=== PATIENT | male | born 1985 | race Caucasian/White ===

== ENCOUNTER 2020-06-10 17:16 | Emergency (ER) | payer SELFPAY ==
[~2020-06-10] VITALS: Ht 188 cm; Wt 177.7 kg
[2020-06-10] MEDS ORDERED: DOXYCYCLINE 10100 MG PO (17:57)
[2020-06-10] MEDS ORDERED: CEPHALEXIN500 M1 PO (17:57)
[2020-06-10 18:05] VITALS: BP 158/76; PULSE 86; TEMP 98.7
== END 2020-06-10 18:11 | disposition home or self-care (01) ==
LOC: COL.ER 17:16
DX: M79.674 Pain in right toe(s) (principal)